=== PATIENT | female | born 1960 | race African-American/Black ===

== ENCOUNTER 2023-02-13 22:06 | Emergency (ER) | payer BC, SELFPAY ==
[2023-02-13 22:10] VITALS: BP 183/108; PULSE 91; RESP 20; TEMP 36.2; O2SAT 100
[2023-02-13 23:55] LABS: Basophils Absolute Auto 0.1 K/mm3 (0.0-0.1); Eosinophils Absolute Auto 0.3 K/mm3 (0-0.3); Eosinophils Percent Auto 5.4 % (0-4.4); Hematocrit 39.4 % (37.0-47.0); Hemoglobin 12.1 g/dL (12.0-15.0); Immature Granulocyte Absolute 0.02 K/mm3 (0.00-0.031); Immature Granulocyte Percent A 0.3 % (0-0.5); Lymphocytes Absolute Auto 1.87 K/mm3 (0.9-3.2); Lymphocytes Percent Auto 29.9 % (18.3-44.2); Mean Corpuscular HGB Conc 30.7 g/dl (32-36); Mean Corpuscular Hemoglobin 23.2 pg (26-34); Mean Corpuscular Volume 75.6 fl (80-100); Mean Platelet Volume 9.8 fl (7.4-10.4); Monocytes Absolute Auto 0.6 K/mm3 (0.1-0.6); Monocytes Percent Auto 9.3 % (2.6-8.5); Neutrophils Absolute Auto 3.4 K/mm3 (1.3-6.7); Neutrophils Percent Auto 54.1 % (45.5-73.1); Platelet Count Result 278 k/mm3 (150-375); Red Blood Count 5.21 M/mm3 (4.2-5.4); Red Cell Distribution Width 15.1 % (11.5-14.5); White Blood Count 6.3 K/mm3 (4.5-10.0)
[2023-02-14 00:11] VITALS: BP 162/98; PULSE 75; RESP 16; TEMP 36.4; O2SAT 100
[2023-02-14 00:11] LABS: Alanine Aminotransferase 35 U/L (6-35); Albumin Level 4.7 g/dL (3.5-5.1); Alkaline Phosphatase 112 U/L (38-126); Anion Gap 8 mmol/L (8-16); Aspartate Amino Transferase 31 U/L (14-36); Bilirubin,Total 0.4 mg/dL (0.2-1.3); Blood Urea Nitrogen 17 mg/dL (7-17); Calcium 9.2 mg/dL (8.4-10.2); Carbon Dioxide 28 mmol/L (22-30); Chloride 102 mmol/L (98-107); Estimated CRCL calculation 70 ml/min; Estimated Glomerular Filt Rate > 60; Glucose 124 mg/dL (65-110); Lipase 80 U/L (23-300); Potassium 3.5 mmol/L (3.4-5.0); Sodium 138 mmol/L (137-145)
[2023-02-14 00:23] LABS: Appearance Urine Clear (Clear); Bilirubin Urine Negative (Negative); Blood Urine Negative (Negative); Color Urine Yellow (Yellow); Glucose Urine UA Negative (Negative); Ketones Urine Negative (Negative); Leukocyte Esterase Ur Trace LEU/UL (Negative); Nitrate Urine Negative (Negative); Protein Urine Negative (Negative); Specific Grav Ur 1.017 (1.001-1.035); Urobilinogen Urine 0.2 mg/dL (<2.0); pH Urine 5.5 (5.0-9.0)
[2023-02-14 00:30] LABS: Add Urine Microscopic? NO
--- NOTE | 2023-02-14 00:44 | ED.ABDPAIN ---
HPI - Abdominal Pain General Chief Complaint: Abdominal Pain <Jayden Mckeon PA-C - Last Filed: 02/14/23 02:00> Stated Complaint: GERD <Jayden Mckeon PA-C - Last Filed: 02/14/23 02:00> Time Seen by Provider: 02/14/23 00:27 <Jayden Mckeon PA-C - Last Filed: 02/14/23 02:00> Source: patient <MELBA Perez Last Filed: 02/14/23 02:00> Mode of arrival: ambulatory <MELBA Perez Last Filed: 02/14/23 02:00> Limitations: no limitations <Jayden Mckeon PA-C - Last Filed: 02/14/23 02:00> History of Present Illness HPI narrative: This is a 62-year-old female who presents to the ED with chief complaint of acid reflux symptoms beginning this evening just prior to arrival. Patient states she started to feel a burning sensation in her epigastrium radiating up into the throat after eating a red hot riplet. Reports initial dysphagia but this is subsided. She is still states that there is some pain with swallowing. Denies vomiting. States she has history of acid reflux problems and has taken Nexium in the past but no formal diagnosis of GERD. Also states the abdominal pain is subsided. Denies diaphoresis, shortness of breath, lightheadedness, LOC, cough. <Jayden Mckeon PA-C - Last Filed: 02/14/23 02:00> Related Data Home Medications: Home Medications Medication Instructions Recorded Confirmed cholecalciferol (vitamin D3) 250 250 mcg PO WEEKLY 08/04/22 08/04/22 mcg (10,000 unit) capsule <MELBA Perez Last Filed: 02/14/23 02:00> Allergies/Adverse Reactions: Allergies Allergy/AdvReac Type Severity Reaction Status Date / Time Penicillins Allergy Unknown Unknown Verified 02/13/23 22:14 shellfish Allergy Unknown Unknown Uncoded 08/04/22 08:32 <MELBA Perez Last Filed: 02/14/23 02:00> Review of Systems Review of Systems: CONSTITUTIONAL: Denies fever, chills, or sweats. EYES: Denies visual changes, redness, or discharge. ENT: See HPI CARDIOVASCULAR: See HPI RESPIRATORY: Denies cough or dyspnea. GASTROINTESTINAL: Denies abdominal pain, nausea, vomiting, or diarrhea. GENITOURINARY: Denies dysuria or hematuria. SKIN: Denies rash or itching. MUSCULOSKELETAL: Denies back pain, joint pain, or myalgia. NEUROLOGIC: Denies headache, numbness, dizziness, or weakness. PSYCHIATRIC: Denies anxiety or depression. <Jayden Mckeon PA-C - Last Filed: 02/14/23 02:00> PMFSH Family History Family History: Family History Father Hypertension Heart disease Mother Pancreatic cancer Diabetes mellitus Sibling Hypertension Heart disease <MELBA Perez Last Filed: 02/14/23 02:00> Social History Social History: Social History Smoking status: Never smoker Alcohol intake: current Substance use: never <MELBA Perez Last Filed: 02/14/23 02:00> Exam Narrative: GENERAL: Well-appearing, well-nourished, and in no acute distress. HEAD: Normocephalic, atraumatic. EYES: PERRLA and EOMI. ENT: Nares clear, no rhinorrhea or epistaxis. Mucous membranes moist. Oropharynx without tonsillar hypertrophy exudate or other lesions. NECK: Supple. No adenopathy or masses. CHEST: No respiratory distress. Clear to auscultation. No wheezes rales or rhonchi HEART: Regular rate and rhythm. No murmur heard. Normal peripheral pulses. ABDOMEN: Soft, nontender, nondistended, normal active bowel sounds. EXTREMITIES: Normal range of motion. No edema. SKIN: Warm, dry, no rash. NEURO: Alert and oriented x3. No focal deficits. PSYCH: Normal mood and affect. <MELBA Perez Last Filed: 02/14/23 02:00> Course Course Emergency Course: Reevaluation 0132: Feeling significantly improved after the Pepcid and GI cocktail. <MELBA Perez Filed: 02/14/23 02:00> CNC CUTTING OPERATOR/PA Physician Supervision For th
--- NOTE | 2023-02-14 00:50 | ECG_ITS ---
Measurements Intervals [place] Rate: 67 P: 31 OH: 214 QRS: 8 QRSD: 87 T: 10 QT: 392 QTc: 415 Interpretive Statements SINUS RHYTHM WITH FIRST DEGREE AV BLOCK MODERATE VOLTAGE CRITERIA FOR LVH, CONSIDER NORMAL VARIANT [MEETS CRITERIA IN ONE OF: R(aVL), S(V1), R(V5), R(V5/V6)+S(V1)] NONSPECIFIC T-WAVE ABNORMALITY NO PREVIOUS ECG AVAILABLE FOR COMPARISON Electronically Signed On 02-14-2023 13:41:42 CDT by Jennifer Wright M.D.
[2023-02-14] MEDS: FAMOTIDINE 20 MG/2 ML VIAL IV PUSH (01:00)
[2023-02-14] MEDS: BELLADONNA ALK/PHENOB ELIX 10 ML, MAG HYDROX/ALUMINUM HYD/SIMETH 30 ML, LIDOCAINE HCL 2... PO (01:00)
== END 2023-02-14 02:12 | disposition home or self-care (01) ==
PROVIDERS: Emergency Medicine; Emergency Provider Physician Assistant
DX: K21.9 Gastro-esophageal reflux disease without esophagitis (principal)
CPT/HCPCS: 36415; 80053; 81001; 81003; 83690; 85025; 93005; 96374; 99284; A9270

== ENCOUNTER 2023-11-17 15:02 | Emergency (ER) | payer BC, SELFPAY ==
--- NOTE | ~2023-11-17 | XR_ITS ---
XR chest 2V DATE: 11/17/2023 15:59 INDICATION: Cough for 2 weeks. Nonsmoker. TECHNIQUE: PA and lateral views COMPARISON: 09/11/2018 two-view chest FINDINGS: Normal heart size. Mild aortic unfolding. No hilar or mediastinal enlargement. No pulmonary infiltrate or consolidation, pleural effusion or pulmonary vascular congestion or pneumo thorax. Diffuse idiopathic skeletal hyperostosis of the thoracic spine. IMPRESSION: No active cardiopulmonary disease Reviewed, dictated and finalized at location B. SHOVEL OPERATOR
[2023-11-17 15:16] VITALS: BP 142/96; PULSE 90; RESP 16; TEMP 35.9; O2SAT 99
--- NOTE | 2023-11-17 15:40 | ED.URI ---
HPI - URI/Sore Throat General Chief Complaint: Upper Respiratory Infection Stated Complaint: COUGH/CONGESTION Time Seen by Provider: 11/17/23 15:40 Source: patient Mode of arrival: ambulatory Limitations: no limitations History of Present Illness HPI Narrative: 63-year-old female presents with complaint of chest congestion, cough for approximately 2 weeks. Afebrile. Taking Mucinex DM to treat symptoms. No chest pain or shortness breath. Co-worker told her she may need Z-Terence. All systems reviewed and negative except as noted above. Related Data Home Medications Medication Instructions Recorded Confirmed amlodipine 5 mg tablet mg 11/17/23 ergocalciferol (vitamin D2) 1,250 11/17/23 mcg (50,000 unit) capsule meloxicam 15 mg tablet mg 11/17/23 11/17/23 Allergies Allergy/AdvReac Type Severity Reaction Status Date / Time Penicillins Allergy Unknown Unknown Verified 11/17/23 16:30 shellfish Allergy Unknown Unknown Uncoded 11/17/23 16:30 Review of Systems Review of Systems: CONSTITUTIONAL: Denies fever, chills, or sweats. EYES: Denies visual changes, redness, or discharge. ENT: Denies rhinorrhea, congestion, sore throat, or otalgia. CARDIOVASCULAR: Denies chest pain, palpitations, or edema. RESPIRATORY: Reports cough chest congestion. Denies dyspnea. GASTROINTESTINAL: Denies abdominal pain, nausea, vomiting, or diarrhea. GENITOURINARY: Denies dysuria or hematuria. SKIN: Denies rash or itching. MUSCULOSKELETAL: Denies back pain, joint pain, or myalgia. NEUROLOGIC: Denies headache, numbness, or weakness. PSYCHIATRIC: Denies anxiety or depression. All other systems reviewed are negative, except as documented in HPI. [facility] Family History Family History Father Hypertension Heart disease Mother Pancreatic cancer Diabetes mellitus Sibling Hypertension Heart disease Social History Social History Smoking status: Never smoker Alcohol intake: current Substance use: never Comments At time of signature, agree with nursing past medical, surgical, social and family history. There is no relevant family history pertinent to the presenting complaint. Exam Narrative: GENERAL: This is a well-nourished, well-developed patient, in no apparent distress. HEAD: normocephalic, atraumatic. EYES: PERRL. Sclera clear/white. Vision is grossly intact. EARS: External ears normal, auditory canals clear and without drainage, TMs normal without perforation. Hearing grossly intact. NOSE: External nose normal with no obvious nasal discharge, nares without redness, no rhinorrhea. THROAT: Mucous membranes moist, posterior pharynx clear. NECK: Neck supple, non-tender without lymphadenopathy, masses or thyromegaly. CARDIOVASCULAR: Regular rate and rhythm without murmurs, gallops, or rubs. RESPIRATORY: Decreased to lower lung guzman otherwise clear. Breath sounds equal bilaterally. No wheezes, rales, or rhonchi. SKIN: warm, Dry, intact with no suspicious lesions or rash, good texture and turgor. NEURO: awake, alert, and oriented to person, place and time. There were no obvious focal neurologic abnormalities. EXTREMITIES: No joint tenderness, effusion, or edema noted. Course Course Level of Care: Express Care Visit Vital Signs Vital signs: Vital Signs Temperature 35.9 C L 11/17/23 15:16 Pulse Rate 90 11/17/23 15:16 Respiratory Rate 16 11/17/23 15:16 Blood Pressure 142/96 H 11/17/23 15:16 Pulse Oximetry 99 11/17/23 15:16 Temperature 35.9 C L 11/17/23 15:16 Pulse Rate 90 11/17/23 15:16 Respiratory Rate 16 11/17/23 15:16 Blood Pressure 142/96 H 11/17/23 15:16 Pulse Oximetry 99 11/17/23 15:16 Reviewed MDM - URI/Sore Throat MDM Narrative Medical decision making narrative: Patient is aware of diagnosis, understands and agrees to treatment plan. Anticipatory
== END 2023-11-17 16:16 | disposition home or self-care (01) ==
PROVIDERS: Emergency Provider Nurse Practitioner Family
DX: J20.9 Acute bronchitis, unspecified (principal); I10 Essential (primary) hypertension
CPT/HCPCS: 71046; 99213; G0463

== ENCOUNTER 2023-12-09 13:44 | Emergency (ER) | payer BC, SELFPAY ==
[2023-12-09 14:00] VITALS: BP 161/87; PULSE 110; RESP 16; TEMP 39.2; O2SAT 97
--- NOTE | 2023-12-09 14:09 | ED.URI ---
HPI - URI/Sore Throat General Chief Complaint: Upper Respiratory Infection Stated Complaint: Feve/Head Congestion/Cough Time Seen by Provider: 12/09/23 14:09 Source: patient and RN notes reviewed Mode of arrival: ambulatory Limitations: no limitations History of Present Illness HPI Narrative: 63 y/o female presented for c/o body aches, cough, fever and vomiting. Onset yesterday. States she had temp up to 103.9, but felt too bad to get up for tylenol. 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 Denies sob, wheezing, chest pain or palpitations. MD elicited complaint: cough Related Data Home Medications Medication Instructions Recorded Confirmed amlodipine 5 mg tablet 5 mg PO DAILY 11/17/23 12/09/23 ergocalciferol (vitamin D2) 1,250 1,250 mcg PO WEEKLY 11/17/23 12/09/23 mcg (50,000 unit) capsule meloxicam 15 mg tablet 15 mg PO DAILY 11/17/23 12/09/23 atorvastatin 20 mg tablet 20 mg PO DAILY 12/09/23 12/09/23 Allergies Allergy/AdvReac Type Severity Reaction Status Date / Time Penicillins Allergy Unknown Unknown Verified 11/17/23 16:30 shellfish Allergy Unknown Unknown Uncoded 11/17/23 16:30 Review of Systems Review of Systems: CONSTITUTIONAL: Endorses malaise, chills, sweats, fever EYES: Denies visual changes, redness, or discharge ENT: Reports rhinorrhea, congestion, denies sinus pain, otalgia, sore throat CARDIOVASCULAR: Denies chest pain, palpitations, edema RESPIRATORY: Reports cough, Denies dyspnea GASTROINTESTINAL: Denies abdominal pain, diarrhea reports nausea, vomiting SKIN: Denies rash or itching MUSCULOSKELETAL: Endorses myalgia PMFSH Family History Family History Father Hypertension Heart disease Mother Pancreatic cancer Diabetes mellitus Sibling Hypertension Heart disease Social History Social History Smoking status: Never smoker Alcohol intake: current Substance use: never Exam Narrative: GENERAL: Ill-appearing, nontoxic no acute distress. HEAD: Normocephalic EYES: PERRLA, conjunctivae clear ENT: Mucous membranes moist. TM pearly mcclendon with dull light reflex bilaterally; no tragal tenderness. Oropharynx not erythematous without lesions or exudate, no drooling, no hoarseness, no trismus, uvula midline. No tripod positioning, muffled voice, soft palate or pharyngeal wall bulging NECK: Supple. No lymphadenopathy CHEST: Clear to auscultation, breath sounds equal. Cough is moist. Chest congestion clears with cough No wheezing, rhonchi, rales, or stridor. No respiratory distress, speaks in full sentences. HEART: Regular rate and rhythm. No murmur heard. SKIN: Warm, dry, no rash. NEURO: Alert and oriented x3. PSYCH: Normal mood and affect Course Course Emergency Course: Patient is aware of diagnosis, understands and agrees to treatment plan. Anticipatory guidance given. Patient agrees to follow-up as directed and is aware of reasons to seek care at the emergency department. Portions of this record may have been created with voice recognition software Level of Care: Express Care Visit Vital Signs Vital signs: Vital Signs Temperature 102.5 F H 12/09/23 14:00 Pulse Rate 110 H 12/09/23 14:00 Respiratory Rate 16 12/09/23 14:00 Blood Pressure 161/87 H 12/09/23 14:00 Pulse Oximetry 97 12/09/23 14:00 Temperature 102.5 F H 12/09/23 14:00 Pulse Rate 110 H 12/09/23 14:00 Respiratory Rate 16 12/09/23 14:00 Blood Pressure 161/87 H 12/09/23 14:00 Pulse Oximetry 97 12/09/23 14:00 reviewed MDM - URI/Sore Throat MDM Narrative Medical decision making narrative: POS flu. Discussed physical exam findings. Reviewed Rx's. Advised supportive measures and signs/symptoms to go to the ER. Pt is appropriate for outpt treatment and f/u. Differential Diagnosis Differential diagnosis: Likely upper respiratory infection, sinusitis and viral infection
== END 2023-12-09 14:30 | disposition home or self-care (01) ==
PROVIDERS: Emergency Provider Nurse Practitioner Family
DX: J11.1 Influenza due to unidentified influenza virus with other respiratory manifestations (principal); Z79.899 Other long term (current) drug therapy; Z79.1 Long term (current) use of non-steroidal anti-inflammatories (NSAID); Z20.822 Contact with and (suspected) exposure to COVID-19
CPT/HCPCS: 87426; 87804; 99213; G0463

== ENCOUNTER 2023-12-14 11:06 | Emergency (ER) | payer BC, SELFPAY ==
--- NOTE | ~2023-12-14 | XR_ITS ---
EXAMINATION: XR chest 2V DATE: 12/14/2023 12:22 INDICATION: Productive cough TECHNIQUE: PA and lateral views of the chest are obtained. COMPARISON: 11/17/2023 FINDINGS: There are minimal airspace opacities of the left lung base. No pleural effusion or pneumoth orax. The cardiomediastinal silhouette is normal. There is moderate thoracic spondylosis. IMPRESSION: 1. Minimal left basilar airspace opacity, consistent with atelectasis versus pneumonia. Reviewed, dictated and finalized at location L. AGE WORKER IMPRESSION: 1. Minimal left basilar airspace opacity, consistent with atelectasis versus pn eumonia.
[2023-12-14 11:08] VITALS: BP 145/82; PULSE 91; RESP 20; TEMP 36.6; O2SAT 93
--- NOTE | 2023-12-14 13:05 | ED.URI ---
HPI - URI/Sore Throat General Chief Complaint: Upper Respiratory Infection Stated Complaint: congestion, cough Time Seen by Provider: 12/14/23 12:20 History of Present Illness HPI Narrative: This is a 63-year-old female, with history of hypertension, recently diagnosed with influenza a, presents emergency department with persistent cough productive of green sputum. Patient states her cough has been present for the past week. She was started on course of prednisone and Tamiflu, though her cough and subjective fevers persisted. Related Data Home Medications Medication Instructions Recorded Confirmed amlodipine 5 mg tablet 5 mg PO DAILY 11/17/23 12/09/23 ergocalciferol (vitamin D2) 1,250 1,250 mcg PO WEEKLY 11/17/23 12/09/23 mcg (50,000 unit) capsule meloxicam 15 mg tablet 15 mg PO DAILY 11/17/23 12/09/23 atorvastatin 20 mg tablet 20 mg PO DAILY 12/09/23 12/09/23 Allergies Allergy/AdvReac Type Severity Reaction Status Date / Time Penicillins Allergy Unknown Unknown Verified 12/14/23 11:11 shellfish Allergy Unknown Unknown Uncoded 11/17/23 16:30 Review of Systems Review of Systems: CONSTITUTIONAL: Subjective fevers Denies chills, or sweats. ENT: Denies rhinorrhea, congestion, sore throat, or otalgia. CARDIOVASCULAR: Denies chest pain, palpitations, or edema. RESPIRATORY: Cough productive of nonbloody green sputum Denies dyspnea. GASTROINTESTINAL: Denies abdominal pain, nausea, vomiting, or diarrhea. GENITOURINARY: Denies dysuria or hematuria. SKIN: Denies rash or itching. MUSCULOSKELETAL: Denies back pain, joint pain, or myalgia. NEUROLOGIC: Denies headache, numbness, dizziness, or weakness. PSYCHIATRIC: Denies anxiety or depression. [facility] Past Medical History Medical History Hyperlipidemia Hypertension Surgical History Surgical History History of tubal ligation Family History Family History Father Hypertension Heart disease Mother Pancreatic cancer Diabetes mellitus Sibling Hypertension Heart disease Social History Social History Smoking status: Never smoker Alcohol intake: current Substance use: never Exam Narrative: GENERAL: Well-developed, well-nourished, and in no acute distress. HEAD: Normocephalic, atraumatic. EYES: PERRLA and EOMI. CHEST: Rales heard primarily in the left lower lung field, good aeration No respiratory distress. No wheezes or rhonchi HEART: Regular rate and rhythm. No murmur heard. Normal peripheral pulses. EXTREMITIES: Normal range of motion. No edema. SKIN: Warm, dry, no rash. NEURO: Alert and oriented x3. No focal deficit. Moving all 4 limbs spontaneously PSYCH: Normal mood and affect. Course Course Emergency Course: 14:35 - CBC demonstrates mild white blood cell count elevation but is otherwise unremarkable. Chemistries unremarkable. Chest x-ray changes in left lower lobe lung base consistent with atelectasis versus pneumonia. Considering the continuation of the patient's symptoms, will discharge with antibiotics for community-acquired pneumonia. I discussed the findings and recommendations with the patient. Discussed return and emergency precautions including signs/symptoms of respiratory distress and sepsis. The patient voiced understanding and agreement with the plan. All questions answered to her satisfaction. Vital Signs Vital signs: Vital Signs Temperature 97.8 F 12/14/23 11:08 Pulse Rate 91 12/14/23 11:08 Respiratory Rate 20 12/14/23 11:08 Blood Pressure 145/82 H 12/14/23 11:08 Pulse Oximetry 93 12/14/23 11:08 Oxygen Delivery Room Air 12/14/23 11:08 Temperature 97.6 F 12/14/23 15:04 Pulse Rate 82 12/14/23 15:04 Respiratory Rate 18 12/14/23 15:04 Blood Pressure 139/78 02
[2023-12-14 13:33] LABS: Basophils Percent Auto 0.2 % (0.2-1.2); Eosinophils Percent Auto 0.4 % (0-4.4); Hematocrit 40.3 % (37.0-47.0); Hemoglobin 12.6 g/dL (12.0-15.0); Immature Granulocyte Absolute 0.03 K/mm3 (0.00-0.031); Immature Granulocyte Percent A 0.3 % (0-0.5); Lymphocytes Absolute Auto 1.02 K/mm3 (0.9-3.2); Lymphocytes Percent Auto 9.2 % (18.3-44.2); Mean Corpuscular HGB Conc 31.3 g/dl (32-36); Mean Corpuscular Hemoglobin 23.6 pg (26-34); Mean Corpuscular Volume 75.3 fl (80-100); Mean Platelet Volume 9.9 fl (7.4-10.4); Monocytes Absolute Auto 0.5 K/mm3 (0.1-0.6); Monocytes Percent Auto 4.8 % (2.6-8.5); Neutrophils Absolute Auto 9.4 K/mm3 (1.3-6.7); Neutrophils Percent Auto 85.1 % (45.5-73.1); Platelet Count Result 239 k/mm3 (150-375); Red Blood Count 5.35 M/mm3 (4.2-5.4)
[2023-12-14 13:35] LABS: Anion Gap 7 mmol/L (8-16); Blood Urea Nitrogen 13 mg/dL (7-17); Carbon Dioxide 25 mmol/L (22-30); Chloride 101 mmol/L (98-107); Estimated CRCL calculation 68 ml/min; Estimated Glomerular Filt Rate > 60; Glucose 121 mg/dL (65-110); Potassium 4.4 mmol/L (3.4-5.0); Sodium 133 mmol/L (137-145)
[2023-12-14 15:04] VITALS: BP 139/78; PULSE 82; RESP 18; TEMP 36.4; O2SAT 98
== END 2023-12-14 15:05 | disposition home or self-care (01) ==
PROVIDERS: Emergency Provider Preventive Medicine Aerospace Medicine
DX: J18.9 Pneumonia, unspecified organism (principal); E78.5 Hyperlipidemia, unspecified; I10 Essential (primary) hypertension
CPT/HCPCS: 36415; 71046; 80048; 85025; 99283